=== PATIENT | female | born 1955 | race Caucasian/White ===

== ENCOUNTER → 2022-10-23 | Outpatient (CLI) | payer MEDICARE, OTHER ==
[~2022-10-23] MED LIST: ALPR.5 PO; AZIT250 PO; Flonase 0.05% N16 GM; METF500C PO; Sudogest30 MG PO; ZESTORETIC 20-121 EA
== END | disposition home or self-care (01) ==
LOC: LAB 11:40 → LAB SHORT 11:40
DX: R21 Rash and other nonspecific skin eruption (principal)
CPT/HCPCS: 86787